=== PATIENT | male | born 1970 | race Caucasian/White ===

== ENCOUNTER 2018-05-11 11:59 | Emergency (ER) | payer MEDICARE, BC, MEDICAID, SELFPAY ==
[2018-05-11 12:03] VITALS: BP 134/82; PULSE 78; RESP 16; TEMP 36.7; O2SAT 96
--- NOTE | 2018-05-11 12:25 | ED.GENADUL_ITS ---
Disposition Clinical Impression: History of seizure, Hypokalemia Disposition: HOME Condition: Good Instructions: Recurrent Seizures in Adults (ED) Additional Instructions: Please eat plenty of bananas at home. Please take your seizure medications as directed. Please follow-up with your neurologist and neurosurgeon as soon as possible. If you notice any worsening of your symptoms, or any new symptoms such as vomiting, diarrhea, fever, chills, shortness of breath, chest pain, numbness, weakness, or fainting , please return immediately to the emergency department for reevaluation. Please follow up with your primary care provider as soon as possible for reassessment and reevaluation. As always, it was a pleasure participating in your medical care today. You should not drive, operate machinery, climb heights (such as a ladder), swim , or bathe alone or do anything else which could be dangerous if you would have another seizure. Please abide by this for the next 6 months or until cleared by a physician. Referrals: Archana Milian MD [Primary Care Provider] - Medical Decision Making - Medical Decision Making This is a 48-year-old male with past medical history of seizures for which he takes multiple medications, and he has a long history of developmental delay, brain surgery, who presents today for focal seizure on his left upper extremity. Per his regular care provider this is his normal baseline, and there have been no abnormalities, however he was with a temporary care provider today for short period of time and after the seizure they did call 911, upon EMS arrival recommended review in the ER. Current leave the patient's seizure lasted less than 5 minutes, resolved on his own, had no loss of consciousness. He has been taking his medications as directed per his manager of case management. He shows no focal neurologic deficits, no signs of hydrocephalus of nausea, vomiting, altered mental status or obtundation. Laboratory workup is relatively benign. I feel that he is within his normal baseline, and needs to continue taking his antiepileptic medication follow-up with his neurosurgeon and neurologist at [facility]. We discussed red flags which returned and patient and family understand. I have extensively reviewed the treatment plan and discharge instructions with the patient and their family. I have addressed all patient concerns at this time. The patient and family was made aware of what symptoms to monitor for that would warrant a return to the emergency department. Discussed the plan with the patient and family, they demonstrate verbal understanding and agreement with our assessment and plan at this time. History of Present Illness - General Chief complaint: Seizure Stated complaint: BETHEL Time Seen by Provider: 05/11/18 12:07 - History of Present Illness Initial comments: This is a 48-year-old male with a past medical history of developmental delay, and seizures as well as brain surgery and a history of Acquired obstructive hydrocephalus, brain surgery, epilepsy, chronic left CVA with right-sided hemiparesis. For his seizures he takes Lamictal, zonisamide, and aptiom. Patient presents today with a complaint of seizure. He was not with his normal caretakers and just at a respite house, which is temporary housing while his caretakers are busy. He was there that he had a right arm focal seizure, it lasted less than 5 minutes. He had no abnormalities or complaints after this and it resolved on its own without any medication. Patient does have a developmental delay, however he has no complaints whatsoever at this time. He is at his neurologic baseline. He denies any headache, vision changes chest pain shortness of breath numbness tingling or weakness. He states that he has been taking his medications given by his caregiver. He normally has seizures weekly, but secondary to recent brain surgery within the past year he has now regressed to monthly seizures. His last seizure was lately less than a month ago. The patient's normal home care scheduler has come with him here and is at bedside, and she states that his seizures are normal for him, and there have been no significant abnormalities that were noted or referred to her. She confirms that he has been taking his medications regularly. No other complaints at this time. No IV illicit drug use. No pertinent family history. - Related Data Multivitamin [Multivitamins] 1 tab PO DAILY 06/20/14 Acetaminophen 650 mg PO Q4H PRN PRN 05/14/17 Calcium Carbonate/Vitamin D3 [Calcium 600-Vit D3 400 Tablet] 1 each PO BID 05/14 Cetirizine HCl 10 mg PO PRN PRN 05/14/17 Docusate Sodium 100 mg PO BID 05/14/17 Potassium Chloride 10 meq PO DAILY 05/14/17 LamoTRIgine [LaMICtal] 200 mg PO TID #90 06/13/17 Lisinopril 10 mg PO DAILY #30 06/13/17 Atorvastatin Calcium 20 mg PO DAILY tab-cap 07/25/17 Sennosides/Docusate Sodium [Senexon-S Tablet] 2 each PO BID 01/29/18 Zonisamide [Zonegran] 100 mg PO BID 01/29/18 Eslicarbazepine Acetate [Aptiom] 400 mg PO HS #90 tablet 02/26/18 DiphenhydrAMINE [Benadryl] 25 mg PO DIRECTED PRN 03/11/18 Fluticasone Propionate [Flonase Allergy Relief] 2 spray IH DIRECTED 03/11/18 OLANZapine [ZyPREXA] 15 mg PO DAILY 03/11/18 Allergies Allergy/AdvReac Type Severity Reaction Status Date / Time clindamycin Allergy Skin Rash Unverified 03/11/18 06:11 CAT HAIR Allergy Mild Uncoded 03/11/18 06:11 DUST Allergy Mild Uncoded 03/11/18 06:11 Review of Systems Other: 10 point review of systems was performed, pertinent positives and negatives are noted in the history of present illness. Past Medical History - Past Medical History Medical history: hyperlipidemia, hypertension, seizures Delay with chronic right-sided hemiparesis, intractable seizures, DVT left arm Surgical history: other (Corpus colostomy, left hemispherectomy for intractable seizures May 2017) - Social History Alcohol use: none Drug use: none General Exam - Other Other exam information: 1.Const: Well-nourished, Well-developed, appearing stated age 2.Eyes: PERRL, no conjunctival injection, and symmetrical lids. 3.ENT: Atraumatic external nose and ears. Moist MM. Neck: Symmetric, trachea midline, No thyromegaly. No evidence of intraoral bleeding, mastication of the tongue, or other lesions in the mouth or lips. 4.CVS: +S1/S2, No murmurs or gallops. Peripheral pulses 2+ and equal in all extremities. Brisk capillary refill in all extremities. 5.RESP: Unlabored respiratory effort. Clear to auscultation bilaterally. No wheezes rales or rhonchi 6.GI: Soft, Nontender/Nondistended, No hepatosplenomegaly. No guarding or rebound. 7.MSK: Normocephalic/Atraumatic, Extremities w/o deformity or ttp No cyanosis or clubbing, Normal movement of all extremities. He does have some chronic contractures noted in his right upper extremity. 8.Skin: Warm, Dry. No rashes or lesions. 9.Neuro: api architect II-XII grossly intact. Sensation grossly intact, no focal neurologic deficits. Patient is able to move all extremities. He shows no signs of seizure at this time. 10.Psych: Patient's mood and affect is at his baseline per family. He is awake alert and oriented 2. He is extremely pleasant on exam. Course Vital Signs - 24 hr 05/11/18 12:03 Temperature 36.7 C Pulse 78 Respiratory 16 Rate Blood Pressure 134/82 Pulse Oximetry 96
[2018-05-11 12:40] LABS: Abs Immature Grans 0.02 k/cumm (0.0-0.09); Absolute Lymphocyte Count 0.98 k/cumm (1.2-3.4); Absolute Monocyte Count 0.66 k/cumm (0.11-0.7); Absolute Neutrophil Count 6.27 k/cumm (1.2-6.7); HCT 39.1 % (40.0-50.0); HGB 12.9 g/dL (13.5-17.5); Immature Grans % 0.3; Lymphocytes % 12.4; Mean Corpuscular Hemoglobin 28.7 pg (27.0-33.0); Mean Corpuscular Volume 86.9 fL (80-95); Mean Platelet Volume 9.2 fL (8.0-11.0); Monocytes % 8.3; Platelet Count 200 x1000/uL (130-400); RBC Distribution Width 14.2 % (11.8-14.1); White Blood Cell Count 7.93 k/cumm (4.4-10.8)
[2018-05-11] MEDS: Normal Saline 1,000 ML 1000 ML IV (12:50)
[2018-05-11 12:52] LABS: ALT 33 U/L (12-78); AST 20 U/L (15-37); Albumin 3.1 g/dL (3.4-5.0); Alkaline Phosphatase 148 U/L (46-116); Anion Gap 6.8 mmol/L (3-11); BUN 17 mg/dL (7-18); Bilirubin, Total 0.3 mg/dL (0.2-1.0); CO2 30.2 mmol/L (21.0-32.0); CREATININE 1.13 mg/dL (0.70-1.30); Calcium 8.8 mg/dL (8.5-10.1); Chloride 111 mmol/L (98-107); Glucose 90 mg/dL (70-100); Potassium 3.2 mmol/L (3.5-5.1); Sodium 148 mmol/L (136-145)
[2018-05-11] MEDS: Potassium Chloride 20 MEQ TABCR 40 MEQ PO (13:18)
== END 2018-05-11 13:21 | disposition home or self-care (01) ==
PROVIDERS: Emergency Provider Student in an Organized Health Care Education/Training Program; PCP Family Medicine
DX: E87.6 Hypokalemia (principal); G40.909 Epilepsy, unspecified, not intractable, without status epilepticus
CPT/HCPCS: 96360; 99284 ×2; 80053; 85025

== ENCOUNTER → 2018-05-17 12:50 | Outpatient (CLI) | payer MEDICARE, BC, MEDICAID, SELFPAY ==
[2018-05-17 13:46] LABS: Potassium 3.3 mmol/L (3.5-5.1)
== END ==
PROVIDERS: PCP Family Medicine; Visit Provider Family Medicine
DX: E87.6 Hypokalemia (principal)
CPT/HCPCS: 36415; 84132

== ENCOUNTER → 2018-06-19 09:09 | Outpatient (BNVA) | payer MEDICARE, BC, MEDICAID, SELFPAY | PROVIDERS: PCP Family Medicine; Visit Provider Psychiatry & Neurology Neurology | DX: G40.019 Localization-related (focal) (partial) idiopathic epilepsy and epileptic syndromes with seizures of localized onset, intractable, without status epilepticus (principal) | CPT/HCPCS: 99214 ==

== ENCOUNTER 2018-08-17 10:02 | Emergency (ER) | payer MEDICARE, BC, MEDICAID, SELFPAY ==
[2018-08-17 10:09] VITALS: BP 162/93; PULSE 81; RESP 16; TEMP 36.7; O2SAT 97
--- NOTE | 2018-08-17 10:27 | DI.RAD_ITS ---
SYMPTOM/DIAGNOSIS: LACERATION ONE WEEK AGO. NO PAIN. QUESTION F/B RIGHT FOREARM: Two views. The patient's wrist is held in flexion. No acute fracture or dislocation is identified. The softy tissues are unremarkable. No radiopaque foreign bodies are seen in the soft tissues. IMPRESSION: No evidence of a radiopaque foreign body. No acute abnormality.
--- NOTE | 2018-08-17 10:28 | W.ED.GENAD ---
Discharge Plan Disposition Patient Disposition: HOME Condition: Good Discharge Details Chief Complaint: Orthopedic Clinical Impression: Suture check Primary Care Provider: Archana Milian V ED Provider: Dayton Lezama La [place]ia Meds and New Rx's Prescriptions: No Action eslicarbazepine [Aptiom] 800 mg tablet 800 mg PO HS Qty: 90 RF: 3 zonisamide 100 mg capsule 200 mg PO BID Qty: 360 RF: 3 clonazepam 0.5 mg tablet,disintegrating 0.5 mg PO DIRECTED Qty: 20 RF: 2 lamotrigine 200 mg tablet 200 mg PO TID Qty: 270 RF: 3 Atorvastatin Calcium 20 MG tablet 20 mg PO DAILY RF: 0 multivitamin 1 EACH capsule 1 tab PO DAILY RF: 0 acetaminophen 325 MG tablet 650 mg PO Q4H PRN PRNRF: 0 potassium chloride 10 MEQ capsule, extended release 10 meq PO DAILY RF: 0 cetirizine 10 MG tablet 10 mg PO PRN PRNRF: 0 docusate sodium 100 MG capsule 100 mg PO BID RF: 0 calcium carbonate-vitamin D3 1 EACH tablet 1 ea PO BID RF: 0 lisinopril 10 MG tablet 10 mg PO DAILY Qty: 30 RF: 0 sennosides-docusate sodium [Senexon-S] 1 EACH tablet 2 ea PO BID RF: 0 diphenhydramine HCl 25 MG capsule 25 mg PO DIRECTED PRNRF: 0 fluticasone [Flonase Allergy Relief] 9.9 ML spray,suspension 2 spray Inhalation DIRECTED RF: 0 olanzapine [Zyprexa] 20 MG tablet 15 mg PO DAILY RF: 0 Discharge Instructions Instructions: Acute Wound Care (ED) Referrals: Archana Milian MD [Primary Care Provider] - Return if symptoms worsen Discharge Data Discharge Date/Time-TO BE ENTERED AT DEPARTURE: 08/17/18 11:11 Medical Decision Making He is cooperative and career and transition teacher is present. Band aids removed. Two band aids applied. Will x-ray FA to evaluate for F/B. Apprised of normal x-ray. Advised to keep clean and dry. Return if symptoms worsen otherwise with pcp. Imaging Data Radiologic Study: Imaging: X-Ray My impression: No fracture or retained F/B. Radiologist's impression: v-rad: 1. No F/B identified. 2. There is no evidence of acute fracture. HPI General Date/Time Provider Initiated Documentation: 08/17/18 10:14. Limitations to Documentation: no limitations. Information obtained by: patient (and career and transition teacher). History of Present Illness 48 year old M presents to the emergency department with the chief complaint of suture discomfort, HPI Narrative: 48 y/o male brought in by career and transition teacher with c/o increased pain to right arm wound. He was seen in [facility] ED one week ago for self inflicted lacerations to right arm. Sutures placed. Since that time he has c/o right arm pain over the sutures. Tylenol helps relieve the pain. infant caregiver wants checked out. Denies any fever, chills, drainage or other symptoms. Related Data Home Medications Medication Instructions Recorded Confirmed multivitamin 1 tab PO DAILY 06/20/14 08/17/18 acetaminophen 650 mg PO Q4H PRN PRN 05/14/17 08/17/18 calcium carbonate-vitamin D3 1 ea PO BID 05/14/17 08/17/18 cetirizine 10 mg PO PRN PRN 05/14/17 08/17/18 docusate sodium 100 mg PO BID 05/14/17 08/17/18 potassium chloride 10 meq PO DAILY 05/14/17 08/17/18 lisinopril 10 mg PO DAILY #30 06/13/17 08/17/18 Atorvastatin Calcium 20 mg PO DAILY tab-cap 07/25/17 08/17/18 sennosides-docusate sodium 2 ea PO BID 01/29/18 08/17/18 [Senexon-S] diphenhydramine HCl 25 mg PO DIRECTED PRN 03/11/18 08/17/18 fluticasone [Flonase Allergy 2 spray INHALATION DIRECTED 03/11/18 08/17/18 Relief] olanzapine [Zyprexa] 15 mg PO DAILY 03/11/18 08/17/18 clonazepam 0.5 mg disintegrating 0.5 mg PO DIRECTED #20 tab 06/19/18 08/17/18 tablet eslicarbazepine 800 mg tablet 800 mg PO HS #90 tab 06/19/18 08/17/18 lamotrigine 200 mg tablet 200 mg PO TID #270 tab 06/19/18 08/17/18 zonisamide 100 mg capsule 200 mg PO BID #360 cap 06/19/18 08/17/18 Previous Rx's Medication Instructions Recorded lisinopril 10 mg PO DAILY #30 06/13/17 clonazepam 0.5 mg disintegrating 0.5 mg PO DIRECTED #20 tab 06/19/18 tablet eslicarbazepine 800 mg tablet 800 mg PO HS #90 tab 06/19/18 lamotrigine 200 mg tablet 200 mg PO TID #270 tab 06/19/18 zonisamide 100 mg capsule 200 mg PO BID #360 cap 06/19/18 Allergies Allergy/AdvReac Type Severity Reaction Status Date / Time clindamycin Allergy Skin Rash Unverified 08/17/18 10:15 CAT HAIR Allergy Mild Uncoded 08/17/18 10:15 DUST Allergy Mild Uncoded 08/17/18 10:15 General Stated Complaint: Orthopedic JAYDEN: 4 Review of Systems Constitutional Reports as per [facility] Eyes Reports system reviewed and no additional complaints, except [facility] E[facility] Reports system reviewed and no additional complaints, except as [facility] Cardiovascular Reports system reviewed and no additional complaints, except as [facility] Respiratory Reports system reviewed and no additional complaints, except as [facility] Gastrointestinal Reports system reviewed and no additional complaints, except as [facility] Musculoskeletal Reports other (Right FA pain) Exam Const General: cooperative, comfortable, no acute distress and well groomed Nutritional Appearance: overweight Orientation: alert and awake [facility] Head: normal to inspection and atraumatic Ears: hearing grossly normal bilaterally and external ears normal Skin Wounds: wounds noted (superficial dry lacerations to right FA. Sutures are intact with no redness or drainage. Slight brusiing to the dorsal side of FA. ) Extrem General: normal capillary refill Right upper extremity: elbow/forearm (Right ) Details: tenderness Location: of the mid-shaft forearm (over the sutures); ROM limited Elbow/forearm/wrist images: 1. dry superficial lacerations with no redness or drainage. Sutures intact Psych Appearance: grossly normal Mental Status: mental status grossly normal Speech and Movement: speech and movement normal Mood: congruent mood Affect: normal affect Attitude: cooperative Thought Process: normal Thought Content: no homicidality and suicidality Course Vital Signs Temperature 36.7 C 08/17/18 10:09 Pulse 81 08/17/18 10:09 Respiratory Rate 16 08/17/18 10:09 Blood Pressure 162/93 H 08/17/18 10:09 Pulse Oximetry 97 08/17/18 10:09 Temperature 36.7 C 08/17/18 10:09 Temperature Source Temporal Artery Scan 08/17/18 10:09 Pulse 81 08/17/18 10:09 Respiratory Rate 16 08/17/18 10:09 Respiratory Effort Non-Labored 08/17/18 10:14 Blood Pressure 162/93 H 08/17/18 10:09 Blood Pressure Position Sitting 08/17/18 10:09 Pulse Oximetry 97 08/17/18 10:09 Oxygen Delivery Method Room Air 08/17/18 10:09 Oxygen Flow Rate 0 08/17/18 10:09 Pain Level 5 08/17/18 10:09
--- NOTE | 2018-08-17 10:39 | ED.GENADUL_ITS ---
Discharge Plan Disposition Patient Disposition: HOME Condition: Good Discharge Details Chief Complaint: Orthopedic Clinical Impression: Suture check Primary Care Provider: Archana Milian V ED Provider: Dayton Lezama Gormania Meds and New Rx's Prescriptions: No Action eslicarbazepine [Aptiom] 800 mg tablet 800 mg PO HS Qty: 90 RF: 3 zonisamide 100 mg capsule 200 mg PO BID Qty: 360 RF: 3 clonazepam 0.5 mg tablet,disintegrating 0.5 mg PO DIRECTED Qty: 20 RF: 2 lamotrigine 200 mg tablet 200 mg PO TID Qty: 270 RF: 3 Atorvastatin Calcium 20 MG tablet 20 mg PO DAILY RF: 0 multivitamin 1 EACH capsule 1 tab PO DAILY RF: 0 acetaminophen 325 MG tablet 650 mg PO Q4H PRN PRNRF: 0 potassium chloride 10 MEQ capsule, extended release 10 meq PO DAILY RF: 0 cetirizine 10 MG tablet 10 mg PO PRN PRNRF: 0 docusate sodium 100 MG capsule 100 mg PO BID RF: 0 calcium carbonate-vitamin D3 1 EACH tablet 1 ea PO BID RF: 0 lisinopril 10 MG tablet 10 mg PO DAILY Qty: 30 RF: 0 sennosides-docusate sodium [Senexon-S] 1 EACH tablet 2 ea PO BID RF: 0 diphenhydramine HCl 25 MG capsule 25 mg PO DIRECTED PRNRF: 0 fluticasone [Flonase Allergy Relief] 9.9 ML spray,suspension 2 spray Inhalation DIRECTED RF: 0 olanzapine [Zyprexa] 20 MG tablet 15 mg PO DAILY RF: 0 Discharge Instructions Instructions: Acute Wound Care (ED) Referrals: Archana Milian MD [Primary Care Provider] - Return if symptoms worsen Discharge Data Discharge Date/Time-TO BE ENTERED AT DEPARTURE: 08/17/18 11:11 Medical Decision Making He is cooperative and director day care center is present. Band aids removed. Two band aids applied. Will x-ray FA to evaluate for F/B. Apprised of normal x-ray. Advised to keep clean and dry. Return if symptoms worsen otherwise with pcp. Imaging Data Radiologic Study: Imaging: X-Ray My impression: No fracture or retained F/B. Radiologist's impression: v-rad: 1. No F/B identified. 2. There is no evidence of acute fracture. HPI General Date/Time Provider Initiated Documentation: 08/17/18 10:14 . Limitations to Documentation: no limitations . Information obtained by: patient (and director day care center) . History of Present Illness 48 year old M presents to the emergency department with the chief complaint of suture discomfort, HPI Narrative: 48 y/o male brought in by director day care center with c/o increased pain to right arm wound. He was seen in [facility] ED one week ago for self inflicted lacerations to right arm. Sutures placed. Since that time he has c/o right arm pain over the sutures. Tylenol helps relieve the pain. ios programmer wants checked out. Denies any fever, chills, drainage or other symptoms. Related Data Home Medications Medication Instructions Recorded Confirmed multivitamin 1 tab PO DAILY 06/20/14 08/17/18 acetaminophen 650 mg PO Q4H PRN PRN 05/14/17 08/17/18 calcium carbonate-vitamin D3 1 ea PO BID 05/14/17 08/17/18 cetirizine 10 mg PO PRN PRN 05/14/17 08/17/18 docusate sodium 100 mg PO BID 05/14/17 08/17/18 potassium chloride 10 meq PO DAILY 05/14/17 08/17/18 lisinopril 10 mg PO DAILY #30 06/13/17 08/17/18 Atorvastatin Calcium 20 mg PO DAILY tab-cap 07/25/17 08/17/18 sennosides-docusate sodium 2 ea PO BID 01/29/18 08/17/18 [Senexon-S] diphenhydramine HCl 25 mg PO DIRECTED PRN 03/11/18 08/17/18 fluticasone [Flonase Allergy 2 spray INHALATION DIRECTED 03/11/18 08/17/18 Relief] olanzapine [Zyprexa] 15 mg PO DAILY 03/11/18 08/17/18 clonazepam 0.5 mg disintegrating 0.5 mg PO DIRECTED #20 tab 06/19/18 08/17/18 tablet eslicarbazepine 800 mg tablet 800 mg PO HS #90 tab 06/19/18 08/17/18 lamotrigine 200 mg tablet 200 mg PO TID #270 tab 06/19/18 08/17/18 zonisamide 100 mg capsule 200 mg PO BID #360 cap 06/19/18 08/17/18 Previous Rx's Medication Instructions Recorded lisinopril 10 mg PO DAILY #30 06/13/17 clonazepam 0.5 mg disintegrating 0.5 mg PO DIRECTED #20 tab 06/19/18 tablet eslicarbazepine 800 mg tablet 800 mg PO HS #90 tab 06/19/18 lamotrigine 200 mg tablet 200 mg PO TID #270 tab 06/19/18 zonisamide 100 mg capsule 200 mg PO BID #360 cap 06/19/18 Allergies Allergy/AdvReac Type Severity Reaction Status Date / Time clindamycin Allergy Skin Rash Unverified 08/17/18 10:15 CAT HAIR Allergy Mild Uncoded 08/17/18 10:15 DUST Allergy Mild Uncoded 08/17/18 10:15 General Stated Complaint: Orthopedic JAYDEN: 4 Review of Systems Constitutional Reports as per [facility] Eyes Reports system reviewed and no additional complaints, except as [facility] ENT Reports system reviewed and no additional complaints, except as [facility] Cardiovascular Reports system reviewed and no additional complaints, except as [facility] Respiratory Reports system reviewed and no additional complaints, except as [facility] Gastrointestinal Reports system reviewed and no additional complaints, except as [facility] Musculoskeletal Reports other (Right FA pain) Exam Const General: cooperative, comfortable, no acute distress and well groomed Nutritional Appearance: overweight Orientation: alert and awake [facility] Head: normal to inspection and atraumatic Ears: hearing grossly normal bilaterally and external ears normal Skin Wounds: wounds noted (superficial dry lacerations to right FA. Sutures are intact with no redness or drainage. Slight brusiing to the dorsal side of FA. ) Extrem General: normal capillary refill Right upper extremity: elbow/forearm (Right ) Details: tenderness Location: of the mid-shaft forearm (over the sutures); ROM limited Elbow/forearm/wrist images: 2 1. dry superficial lacerations with no redness or drainage. Sutures intact Psych Appearance: grossly normal Mental Status: mental status grossly normal Speech and Movement: speech and movement normal Mood: congruent mood Affect: normal affect Attitude: cooperative Thought Process: normal Thought Content: no homicidality and suicidality Course Vital Signs Temperature 36.7 C 08/17/18 10:09 Pulse 81 08/17/18 10:09 Respiratory Rate 16 08/17/18 10:09 Blood Pressure 162/93 H 08/17/18 10:09 Pulse Oximetry 97 08/17/18 10:09 Temperature 36.7 C 08/17/18 10:09 Temperature Source Temporal Artery Scan 08/17/18 10:09 Pulse 81 08/17/18 10:09 Respiratory Rate 16 08/17/18 10:09 Respiratory Effort Non-Labored 08/17/18 10:14 Blood Pressure 162/93 H 08/17/18 10:09 Blood Pressure Position Sitting 08/17/18 10:09 Pulse Oximetry 97 08/17/18 10:09 Oxygen Delivery Method Room Air 08/17/18 10:09 Oxygen Flow Rate 0 08/17/18 10:09 Pain Level 5 08/17/18 10:09
--- NOTE | 2018-08-17 11:37 | DI.VRAD_ITS ---
EXAM: XR Right Forearm, 2 Views EXAM DATE/TIME: 08/17/2018 10:28 AM CLINICAL HISTORY: 48 years old, male; Pain; Lower or forearm; Right; Patient HX: Laceration one week ago. Pain now ? f/b TECHNIQUE: XR Right forearm 2 views. COMPARISON: No relevant prior studies available. FINDINGS: Bones/joints: There is no evidence of acute fracture. Soft tissues: No foreign body identified. IMPRESSION: 1. No foreign body identified. 2. There is no evidence of acute fracture. Dictated and Authenticated by: Butch Wolff MD. Ordering:YOGI ZENDEJAS MD
== END 2018-08-17 11:11 | disposition home or self-care (01) ==
PROVIDERS: Emergency Provider Nurse Practitioner Family; PCP Family Medicine
DX: M79.621 Pain in right upper arm (principal); S51.811A Laceration without foreign body of right forearm, initial encounter; X58.XXXA Exposure to other specified factors, initial encounter
CPT/HCPCS: 99283; 73090; 99282

== ENCOUNTER → 2018-08-21 09:34 | Outpatient (BNVA) | payer MEDICARE, BC, MEDICAID, SELFPAY | PROVIDERS: PCP Family Medicine; Visit Provider Psychiatry & Neurology Neurology | DX: G40.019 Localization-related (focal) (partial) idiopathic epilepsy and epileptic syndromes with seizures of localized onset, intractable, without status epilepticus (principal); I10 Essential (primary) hypertension | CPT/HCPCS: 95970; 99213 ==

== ENCOUNTER 2018-09-27 14:33 | Outpatient (CLI) | payer MEDICARE, BC, MEDICAID, SELFPAY ==
[2018-09-27 15:20] LABS: HCT 42.7 % (40.0-50.0); HGB 14.4 g/dL (13.5-17.5); Mean Corp. HGB Concentration 33.7 g/dL (32.0-36.0); Mean Corpuscular Hemoglobin 28.9 pg (27.0-33.0); Mean Corpuscular Volume 85.6 fL (80-95); Mean Platelet Volume 9.3 fL (8.0-11.0); Platelet Count 225 x1000/uL (130-400); RBC 4.99 m/cumm (4.50-6.00); RBC Distribution Width 14.3 % (11.8-14.1); White Blood Cell Count 7.55 k/cumm (4.4-10.8)
[2018-09-27 15:45] LABS: ALT 26 U/L (12-78); AST 16 U/L (15-37); Albumin 3.8 g/dL (3.4-5.0); Alkaline Phosphatase 203 U/L (46-116); Anion Gap 11.3 mmol/L (3-11); BUN 9 mg/dL (7-18); Bilirubin, Total 0.4 mg/dL (0.2-1.0); CO2 27.7 mmol/L (21.0-32.0); CREATININE 1.01 mg/dL (0.70-1.30); Calcium 9.4 mg/dL (8.5-10.1); Chloride 106 mmol/L (98-107); Glucose 86 mg/dL (70-100); Magnesium 2.1 mg/dL (1.8-2.4); Potassium 3.3 mmol/L (3.5-5.1); Sodium 145 mmol/L (136-145); Total Protein 7.6 g/dL (6.4-8.2)
== END 2018-09-27 14:53 ==
PROVIDERS: PCP Family Medicine; Visit Provider Specialist/Technologist Athletic Trainer
DX: R42 Dizziness and giddiness (principal)
CPT/HCPCS: 36415; 80053; 85027; 83735

== ENCOUNTER → 2019-01-13 10:44 | Outpatient (BNVA) | payer MEDICARE, BC, MEDICAID, SELFPAY | PROVIDERS: PCP Family Medicine; Visit Provider Psychiatry & Neurology Neurology | DX: G40.019 Localization-related (focal) (partial) idiopathic epilepsy and epileptic syndromes with seizures of localized onset, intractable, without status epilepticus (principal); Z96.9 Presence of functional implant, unspecified | CPT/HCPCS: 99213 ==

== ENCOUNTER → 2019-04-14 11:12 | Outpatient (BNVA) | payer MEDICARE, BC, MEDICAID, SELFPAY | PROVIDERS: PCP Family Medicine; Visit Provider Psychiatry & Neurology Neurology | DX: G40.019 Localization-related (focal) (partial) idiopathic epilepsy and epileptic syndromes with seizures of localized onset, intractable, without status epilepticus; Z46.2 Encounter for fitting and adjustment of other devices related to nervous system and special senses | CPT/HCPCS: 95970; 99213 ==

== ENCOUNTER → 2019-10-20 10:56 | Outpatient (BNVA) | payer MEDICARE, BC, MEDICAID, SELFPAY | PROVIDERS: PCP Family Medicine; Referring Provider Family Medicine; Visit Provider Psychiatry & Neurology Neurology | DX: G40.019 Localization-related (focal) (partial) idiopathic epilepsy and epileptic syndromes with seizures of localized onset, intractable, without status epilepticus | CPT/HCPCS: 95970; 99213 ==

== ENCOUNTER → 2020-04-19 10:21 | Outpatient (BNVA) | payer MEDICARE, BC, MEDICAID, SELFPAY | PROVIDERS: PCP Family Medicine; Referring Provider Family Medicine; Visit Provider Psychiatry & Neurology Neurology | DX: G40.019 Localization-related (focal) (partial) idiopathic epilepsy and epileptic syndromes with seizures of localized onset, intractable, without status epilepticus (principal); Z46.2 Encounter for fitting and adjustment of other devices related to nervous system and special senses; I10 Essential (primary) hypertension | CPT/HCPCS: 95970; 99213 ==

== ENCOUNTER 2020-09-21 18:56 | Outpatient (REF) | payer MEDICARE, BC, MEDICAID, SELFPAY ==
[2020-09-28 09:48] LABS: COVID-19 RT-PCR UVMMC Result Negative (Negative)
== END 2020-09-21 19:16 ==
LOC: NCHCN 18:56
PROVIDERS: PCP Family Medicine; Visit Provider Family Medicine
DX: Z11.59 Encounter for screening for other viral diseases (principal)
CPT/HCPCS: U0003

== ENCOUNTER → 2020-10-18 10:09 | Outpatient (BNVA) | payer MEDICARE, BC, MEDICAID, SELFPAY | PROVIDERS: PCP Family Medicine; Referring Provider Family Medicine; Visit Provider Psychiatry & Neurology Neurology | DX: G40.019 Localization-related (focal) (partial) idiopathic epilepsy and epileptic syndromes with seizures of localized onset, intractable, without status epilepticus (principal); Z96.82 Presence of neurostimulator | CPT/HCPCS: 99213 ==

== ENCOUNTER → 2020-11-15 13:28 | Outpatient (BNVA) | payer MEDICARE, BC, MEDICAID, SELFPAY | PROVIDERS: PCP Family Medicine; Referring Provider Family Medicine; Visit Provider Psychiatry & Neurology Neurology | DX: G40.019 Localization-related (focal) (partial) idiopathic epilepsy and epileptic syndromes with seizures of localized onset, intractable, without status epilepticus (principal); Z46.2 Encounter for fitting and adjustment of other devices related to nervous system and special senses | CPT/HCPCS: 95970; 99214 ==

== ENCOUNTER → 2021-02-14 12:46 | Outpatient (BNVA) | payer MEDICARE, BC, MEDICAID, SELFPAY | PROVIDERS: PCP Family Medicine; Referring Provider Family Medicine; Visit Provider Psychiatry & Neurology Neurology | DX: G40.019 Localization-related (focal) (partial) idiopathic epilepsy and epileptic syndromes with seizures of localized onset, intractable, without status epilepticus | CPT/HCPCS: 99213 ==

== ENCOUNTER → 2021-08-15 11:32 | Outpatient (BNVA) | payer MEDICARE, BC, MEDICAID, SELFPAY | PROVIDERS: PCP Family Medicine; Referring Provider Family Medicine; Visit Provider Psychiatry & Neurology Neurology | DX: G40.909 Epilepsy, unspecified, not intractable, without status epilepticus (principal); G40.019 Localization-related (focal) (partial) idiopathic epilepsy and epileptic syndromes with seizures of localized onset, intractable, without status epilepticus; Z79.899 Other long term (current) drug therapy | CPT/HCPCS: 99442 ==

== ENCOUNTER → 2022-02-09 02:31 | Outpatient (CLI) | payer MEDICARE, BC, MEDICAID, SELFPAY ==
--- NOTE | 2022-02-09 07:30 | DI.US_ITS ---
APPROVED REPORT EXAM: Comprehensive 2D, Doppler, and color-flow Echocardiogram Patient Location: Out-Patient Dental Receptionist: Muriel Feldman RDCS (AE) Indications: Edema Other Information Study Quality: Adequate Conclusion Normal left ventricular wall thickness and chamber size. Estimated ejection fraction is 55 to 60%. Wall motion is normal Normal right ventricular size and systolic function Both atria are normal in size There is no structural or hemodynamically significant valvular disease Wall motion Left Ventricle The left ventricle is normal size. The left ventricular systolic function is normal. The left ventric ular ejection fraction is within the normal range. There is normal left ventricular wall thickness. T here is normal LV segmental wall motion. There is no ventricular septal defect visualized. LVEF is 56 %. Right Ventricle Right ventricle is grossly normal in size. Right ventricular systolic function is grossly normal. Atria The left atrium size is normal. The right atrium size is normal. The interatrial septum is intact wit h no evidence for an atrial septal defect. Aortic Valve The aortic valve is normal in structure. Aortic valve is trileaflet. There is no aortic valvular sten osis. No aortic regurgitation is present. Mitral Valve The mitral valve is normal in structure. No evidence of mitral valve stenosis. Trace mitral regurgita tion. Tricuspid Valve The tricuspid valve is normal in structure. There is no tricuspid valve stenosis. Trace tricuspid reg urgitation. Unable to assess PA pressure. Pulmonic Valve The pulmonary valve is normal in structure. There is no pulmonic valvular stenosis. Trace pulmonic re gurgitation. Great Vessels The aortic root is normal in size. The ascending aorta is normal in size. IVC is normal in size and c ollapses >50% with inspiration. Pericardium There is no pericardial effusion. 2D Dimensions IVSD d PLAX 1.12 cm M: 0.6-1.2 LV Vol A2C d MOD 115.3 mL LVPW d PLAX 1.11 cm M: 0.6 - 1.2 LV Vol A4C d MOD 121.3 mL LVID d PLAX 4.81 cm M: 4.2 - 5.8 LA vol/ BSA A4C s A-L 43.9 mL/m2 LVDs 3.30 cm M: 2.5 - 4.0 LA Area A4C s MOD 28.27 cm2 Ao Root d 2.80 cm M: 3.1 - 3.7 LV EF A4C MOD 55.6 % RA Area A4C 17.66 cm2 LV EF A2C MOD 57.0 % RA Vol/ BSA A4C s A-L 22.5 mL/m2 LV EF Biplane MOD 53.9 % Ao Asc Diam d 3.23 cm M: 2.6 - 3.4 SV 63.89 mL LV EF Teichholz 58.8 % SV Index 28.28 mL/m2 LVEF (Lisa's) 53.95 % M: 52 - 72 LV Volume 85.43 mL M: 62 - 150 LV Volume Index 37.80 mL/m2 M: 34 - 74 LV Vol Biplane MOD 118.4 mL FS 31.10 % M-Mode TAPSE 2.48 cm (M/F) >1.7 LV Diastology MV E' medial 0.093 (>0.07 m/s) E/A Ratio 1.2 LV E/e MED 9.15 (<14) MV E Vmax 0.85 (0.4-1.3 m/s) MV E' lateral 0.103 (>0.1 m/s) MV A Vmax 0.70 (0.4-1.3 m/s) LV E/e LAT 8.25 (<14) MV E/A Ratio 1.16 MV E/E' medial 9.16 MV E/E' lateral 8.29 Aortic Valve LVOT Area 3.45 cm2 AoV Area Vmax 2.95 cm2 LVOT Vmax 1.40 m/s AoV Area/ BSA (Vmax) 1.31 cm2/m2 LVOT Mean Juan. 0.83 m/s VISHNU Mean Juan. 2.63 cm2 LVOT Peak Grad 7.8 mmHg VISHNU Mean Juan. Index 1.17 cm2/m2 LVOT Mean Grad 3.4 mmHg LVOT VTI 0.294 m LVOT Diam s 2.05 cm AoV Vmax 1.64 m/s Velocity Ratio 0.85 AoV Mean Juan. 1.09 m/s AoV Peak Grad 10.7 mmHg LVOT SV 101.19 mL AoV Mean Grad 5.5 mmHg AoV VTI 0.343 m AoV Area VTI 2.95 cm2 AoV Area/ BSA (VTI) 1.31 cm/m2 Mitral Valve MV DT 210 (160-240 msec) MV PHT 61 msec MV Area PHT 3.61 cm2 MV VTI 0.228 m MV Area VTI 4.44 (4.0-6.0 cm2) Pulmonary Valve PV Vmax 1.16 (0.5-1.5 m/s) RVOT Peak Gr. 2.26 mmHg PV Peak Grad 5.4 mmHg RVOT Mean Gr. 1.30 mmHg PV Mean Grad 2.9 mmHg RVOT VTI 0.164 m PV VTI 0.249 m RVOT Vmax 0.75 m/s
== END ==
PROVIDERS: PCP Family Medicine; Visit Provider Nurse Practitioner Family
DX: R60.9 Edema, unspecified (principal)
CPT/HCPCS: 93306

== ENCOUNTER → 2022-02-13 13:33 | Outpatient (BNVA) | payer MEDICARE, BC, MEDICAID, SELFPAY | PROVIDERS: PCP Family Medicine; Referring Provider Family Medicine; Visit Provider Psychiatry & Neurology Neurology | DX: G40.019 Localization-related (focal) (partial) idiopathic epilepsy and epileptic syndromes with seizures of localized onset, intractable, without status epilepticus (principal) | CPT/HCPCS: 95970; 99213 ==

== ENCOUNTER 2022-08-02 12:53 | Outpatient (CLI) | payer MEDICARE, BC, MEDICAID, SELFPAY ==
[2022-08-02 14:14] LABS: HCT 42.9 % (40.0-50.0); HGB 14.1 g/dL (13.5-17.5)
[2022-08-02 15:07] LABS: ALT 27 U/L (16-63); AST 23 U/L (15-37); Albumin 3.3 g/dL (3.4-5.0); Alkaline Phosphatase 159 U/L (46-116); Anion Gap 5.2 mmol/L (3-11); BUN 10 mg/dL (7-18); Bilirubin, Total 0.5 mg/dL (0.2-1.0); CO2 32.8 mmol/L (21.0-32.0); Calcium 9.3 mg/dL (8.5-10.1); Calculated LDL 57 mg/dL (<100); Chloride 101 mmol/L (98-107); Cholesterol 110 mg/dL (<200); Estimated GFR 91.69 (mL/min/1.73m2); Glucose 84 mg/dL (74-106); HDL Cholesterol 35 mg/dL (40-60); Sodium 139 mmol/L (136-145); Triglyceride 93 mg/dL (<150)
[2022-08-02 15:41] LABS: Potassium 2.8 mmol/L (3.5-5.1)
== END 2022-08-02 12:54 | disposition home or self-care (01) ==
LOC: LBO 12:55
PROVIDERS: PCP Family Medicine; Visit Provider Family Medicine
DX: I10 Essential (primary) hypertension (principal); E78.5 Hyperlipidemia, unspecified; E87.6 Hypokalemia; D64.9 Anemia, unspecified
CPT/HCPCS: 36415; 80053; 80061; 85014; 85018

== ENCOUNTER 2022-12-11 18:12 | Outpatient (REF) | payer MEDICARE, BC, MEDICAID, SELFPAY ==
[2022-12-11 15:38] LABS: Anion Gap 8.1 mmol/L (3-11); BUN 12 mg/dL (7-18); CO2 32.9 mmol/L (21.0-32.0); CREATININE 1.1 mg/dL (0.70-1.30); Calcium 9.1 mg/dL (8.5-10.1); Chloride 104 mmol/L (98-107); Estimated GFR 81.78 (mL/min/1.73m2); Glucose 86 mg/dL (74-106); Hemoglobin A1C 5.2 % (<5.7); Sodium 145 mmol/L (136-145)
[2022-12-11 15:51] LABS: Potassium 2.9 mmol/L (3.5-5.1)
== END 2022-12-11 18:13 | disposition home or self-care (01) ==
LOC: NCHCN 18:12
PROVIDERS: PCP Family Medicine; Visit Provider Family Medicine
DX: I10 Essential (primary) hypertension (principal); N28.9 Disorder of kidney and ureter, unspecified; E87.6 Hypokalemia; R79.89 Other specified abnormal findings of blood chemistry
CPT/HCPCS: 80048; 83036

== ENCOUNTER 2022-12-18 11:42 | Outpatient (CLI) | payer MEDICARE, BC, MEDICAID, SELFPAY ==
[2022-12-18 13:34] LABS: Anion Gap 6.5 mmol/L (3-11); BUN 13 mg/dL (7-18); CO2 31.5 mmol/L (21.0-32.0); CREATININE 1.1 mg/dL (0.70-1.30); Calcium 9.8 mg/dL (8.5-10.1); Chloride 104 mmol/L (98-107); Estimated GFR 81.78 (mL/min/1.73m2); Glucose 99 mg/dL (74-106); Potassium 3.5 mmol/L (3.5-5.1); Sodium 142 mmol/L (136-145)
== END 2022-12-18 11:43 | disposition home or self-care (01) ==
LOC: LBO 11:43
PROVIDERS: PCP Family Medicine; Visit Provider Family Medicine
DX: E87.6 Hypokalemia (principal)
CPT/HCPCS: 36415; 80048

== ENCOUNTER 2023-01-02 18:13 | Outpatient (REF) | payer MEDICARE, BC, MEDICAID, SELFPAY ==
[2023-01-02 19:40] LABS: ALT 30 U/L (16-63); AST 25 U/L (15-37); Albumin 3.5 g/dL (3.4-5.0); Alkaline Phosphatase 173 U/L (46-116); Anion Gap 8.2 mmol/L (3-11); BUN 14 mg/dL (7-18); Bilirubin, Total 0.5 mg/dL (0.2-1.0); CO2 31.8 mmol/L (21.0-32.0); CREATININE 1.1 mg/dL (0.70-1.30); Calcium 9.5 mg/dL (8.5-10.1); Chloride 104 mmol/L (98-107); Estimated GFR 81.78 (mL/min/1.73m2); Glucose 83 mg/dL (74-106); Potassium 3.2 mmol/L (3.5-5.1); Sodium 144 mmol/L (136-145)
== END 2023-01-02 18:14 | disposition home or self-care (01) ==
LOC: NCHCN 18:13
PROVIDERS: PCP Family Medicine; Visit Provider Family Medicine
DX: R56.9 Unspecified convulsions (principal); I10 Essential (primary) hypertension; N28.9 Disorder of kidney and ureter, unspecified
CPT/HCPCS: 80053

== ENCOUNTER → 2023-02-12 13:07 | Outpatient (BNVA) | payer MEDICARE, BC, MEDICAID, SELFPAY | PROVIDERS: PCP Family Medicine; Visit Provider Psychiatry & Neurology Neurology | DX: G40.019 Localization-related (focal) (partial) idiopathic epilepsy and epileptic syndromes with seizures of localized onset, intractable, without status epilepticus (principal) | CPT/HCPCS: 99213 ==

== ENCOUNTER 2023-06-20 03:27 | Outpatient (CLI) | payer MEDICARE, BC, MEDICAID, SELFPAY ==
[2023-06-25 13:56] LABS: Clam IgE <0.10 kU/L (<0.70); Crab IgE <0.10 kU/L (<0.70); Lobster IgE <0.10 kU/L (<0.70); Oyster IgE <0.10 kU/L (<0.70); Scallop IgE <0.10 kU/L (<0.70); Shrimp IgE <0.10 kU/L (<0.70)
== END 2023-06-20 03:28 | disposition home or self-care (01) ==
LOC: LOS 03:27
PROVIDERS: PCP Family Medicine; Visit Provider Physician Assistant
DX: Z01.82 Encounter for allergy testing; T78.3XXD Angioneurotic edema, subsequent encounter; Z87.898 Personal history of other specified conditions
CPT/HCPCS: 36415; 86003

== ENCOUNTER 2023-07-24 02:40 | Outpatient (CLI) | payer MEDICARE, BC, MEDICAID, SELFPAY ==
[2023-07-24 13:14] LABS: Anion Gap 7.8 mmol/L (3-11); BUN 12 mg/dL (7-18); CO2 28.2 mmol/L (21.0-32.0); CREATININE 1.1 mg/dL (0.70-1.30); Calcium 9.7 mg/dL (8.5-10.1); Chloride 107 mmol/L (98-107); Estimated GFR 81.28 (mL/min/1.73m2); Glucose 83 mg/dL (74-106); Potassium 3.5 mmol/L (3.5-5.1); Sodium 143 mmol/L (136-145)
== END 2023-07-24 02:41 | disposition home or self-care (01) ==
LOC: LOS 02:40
PROVIDERS: PCP Family Medicine; Visit Provider Family Medicine
DX: I10 Essential (primary) hypertension (principal)
CPT/HCPCS: 36415; 80048

== ENCOUNTER → 2023-08-03 00:42 | Outpatient (CLI) | payer MEDICARE, BC, MEDICAID, SELFPAY ==
--- NOTE | 2023-08-03 10:57 | DI.DEXA_ITS ---
Exam(s) XR DEXA BONE DENSITY W/WO LAURA EXAM: XR DEXA BONE DENSITY W/WO LAURA CLINICAL HISTORY: EPILEPSY G40.919SEIZURE R56.9OSTEOPENIA M85.80 DISORDER BONE DENSITY M85.88 TECHNIQUE: [employer] Horizon C densitometer analysis of left hip, lumbar spine and left forearm. Lat eral survey image of the thoracic and lumbar spine. COMPARISON: CR XR forearm RT from 08/17/2018 FINDINGS: Lateral view of the thoracic and lumbar spine shows no evidence of compression fractures. Bone mineral density measurements of the lumbar spine correspond to a total T-score of -0.4, in the n ormal range. Bone mineral density measurements of the left hip correspond to a total T-score of -1.3 . The femora l neck T-score is -1.9, in the osteopenic range.. Theleft forearm bone mineral density measurements correspond to a T-score of the distal 3rd of -0.6, in the normal range.. IMPRESSION: Normal bone mineral density of the spine and forearm. Osteopenia of the hip.
== END ==
PROVIDERS: PCP Family Medicine; Visit Provider Family Medicine
DX: Z13.820 Encounter for screening for osteoporosis (principal); M85.88 Other specified disorders of bone density and structure, other site
CPT/HCPCS: 77080

== ENCOUNTER 2023-12-11 15:49 | Outpatient (CLI) | payer MEDICARE, BC, MEDICAID, SELFPAY ==
[2023-12-11 13:47] LABS: HCT 45.3 % (40.0-50.0); HGB 14.7 g/dL (13.5-17.5); MCH 27.8 pg (27.0-33.0); MCHC 32.5 % (32.0-36.0); MCV 86 fL (80-95); MPV 9.1 fL (8.0-11.0); Platelet Count 236 10^3/uL (130-400); RBC 5.29 10^6/uL (4.36-5.78); RDW 13.5 % (11.8-14.1); RDW-SD 42.4 fL; WBC 8.96 10^3/uL (4.4-10.8)
[2023-12-11 15:11] LABS: ALT 32 U/L (16-63); AST 19 U/L (15-37); Albumin 3.6 g/dL (3.4-5.0); Alkaline Phosphatase 182 U/L (46-116); Anion Gap 8.1 mmol/L (3-11); BUN 15 mg/dL (7-18); Bilirubin, Total 0.5 mg/dL (0.2-1.0); CO2 30.9 mmol/L (21.0-32.0); CREATININE 1.1 mg/dL (0.70-1.30); Calcium 9.4 mg/dL (8.5-10.1); Chloride 106 mmol/L (98-107); Estimated GFR 81.28 (mL/min/1.73m2); Glucose 89 mg/dL (74-106); Potassium 3.7 mmol/L (3.5-5.1); Sodium 145 mmol/L (136-145); Total Protein 7.9 g/dL (6.4-8.2)
[2023-12-11 23:24] LABS: PSA, Screening 0.3 ng/mL (<=3.5)
== END 2023-12-11 15:50 | disposition home or self-care (01) ==
LOC: LBO 15:51
PROVIDERS: PCP Family Medicine; Visit Provider Family Medicine
DX: I10 Essential (primary) hypertension (principal); Z12.5 Encounter for screening for malignant neoplasm of prostate
CPT/HCPCS: 36415; 80053; 84153; 85027

== ENCOUNTER → 2024-02-12 14:40 | Outpatient (BNVA) | payer MEDICARE, BC, MEDICAID, SELFPAY | PROVIDERS: PCP Family Medicine; Visit Provider Psychiatry & Neurology Neurology | DX: G40.019 Localization-related (focal) (partial) idiopathic epilepsy and epileptic syndromes with seizures of localized onset, intractable, without status epilepticus (principal); I10 Essential (primary) hypertension; G43.009 Migraine without aura, not intractable, without status migrainosus; R00.1 Bradycardia, unspecified | CPT/HCPCS: 99213; 95970 ==

== ENCOUNTER → 2025-02-10 12:55 | Outpatient (BNVA) | payer MEDICARE, BC, MEDICAID, SELFPAY | PROVIDERS: PCP Family Medicine; Visit Provider Psychiatry & Neurology Neurology | DX: G40.109 Localization-related (focal) (partial) symptomatic epilepsy and epileptic syndromes with simple partial seizures, not intractable, without status epilepticus (principal); I10 Essential (primary) hypertension; G43.009 Migraine without aura, not intractable, without status migrainosus; R00.1 Bradycardia, unspecified | CPT/HCPCS: 99214; 95970 ==